=== PATIENT | female | born 1965 | race Caucasian/White ===

== ENCOUNTER → 2018-07-14 | Outpatient (CLI) | payer BC ==
[~2018-07-14] MED LIST: ACET325T14 PO; IBUP200T64 PO
== END | disposition home or self-care (01) ==
LOC: MERGE 08:30 → STAR 08:34
PROVIDERS: ATTEND Orthopaedic Surgery
DX: Z02.9 Encounter for administrative examinations, unspecified (principal)

== ENCOUNTER 2018-07-20 05:16 | Day surgery (SDC) | payer BC ==
[~2018-07-20] VITALS: Ht 165.1 cm; Wt 78.9 kg
[2018-07-20] MEDS ORDERED: LACTATED RINGERS 1,000 ML IV SCH (05:45)
[2018-07-20 06:11] VITALS: BP 158/97
[2018-07-20] MEDS ORDERED: ROPIvacaine/PF 0.5%, 30 ML ONE (06:23)
[2018-07-20] MEDS ORDERED: LIDOCAINE 1%-EPI 1:100K, 30ML ONE (06:23)
[2018-07-20] MEDS ORDERED: FENTANYL PF 100 MCG/2ML ONE ×3 (06:53→07:40)
[2018-07-20] MEDS ORDERED: MIDAZOLAM 1 MG/ML, 2ML ONE (06:53)
[2018-07-20] MEDS ORDERED: DEXAMETHASONE 4 MG/ML, 1ML ONE (07:02)
[2018-07-20] MEDS ORDERED: ONDANSETRON 2MG/ML, 2ML ONE (07:02)
[2018-07-20] MEDS ORDERED: PROPOFOL 50 ML ONE (07:08)
[2018-07-20] MEDS ORDERED: ACETAMINOPHEN 650 MG/20.3 ML UDC ONE (07:40)
[2018-07-20] MEDS ORDERED: OXYcodone 5 MG/5 ML ORAL.SOL UDC ONE (07:40)
[2018-07-20] MEDS: FENTANYL PF 100 MCG/2ML IV PRN ×2 (07:51→07:56)
[2018-07-20] MEDS ORDERED: LABETALOL 20 MG/4 ML ONE (07:53)
[2018-07-20] MEDS: LABETALOL 5MG/ML, 20ML IV PRN ×2 (07:55→08:08)
[2018-07-20] MEDS ORDERED: MORPHINE SULFATE 4 MG/ML, 1ML IVPush PRN (08:00)
[2018-07-20] MEDS ORDERED: ONDANSETRON 2MG/ML, 2ML IV PRN (08:00)
[2018-07-20] MEDS ORDERED: EPHEDRINE 50 MG/ML, 1ML IM PRN (08:00)
[2018-07-20] MEDS ORDERED: PROMETHAZINE 12.5 MG SUPP PR PRN (08:00)
[2018-07-20] MEDS ORDERED: ACETAMINOPHEN 325 MG TABLET PO PRN (08:00)
[2018-07-20] MEDS ORDERED: OXYcodone 5 MG/5 ML ORAL.SOL UDC PO PRN (08:00)
[2018-07-20] MEDS ORDERED: MEPERIDINE/PF 25MG/0.5ML IVPush PRN (08:00)
[2018-07-20] MEDS ORDERED: DIPHENHYDRAMINE 50 MG/ML, 1ML IVPush PRN (08:00)
[2018-07-20] MEDS ORDERED: PROMETHAZINE 25 MG/ML, 1ML IV PRN (08:00)
[2018-07-20] MEDS ORDERED: EPHEDRINE 50 MG/ML, 1ML IVPush PRN (08:00)
[2018-07-20] MEDS ORDERED: PROMETHAZINE 25 MG SUPP PR PRN (08:00)
[2018-07-20] MEDS ORDERED: ONDANSETRON ODT 8 MG PO PRN (08:00)
[2018-07-20] MEDS ORDERED: MIDAZOLAM 1 MG/ML, 2ML IV PRN (08:00)
[2018-07-20] MEDS ORDERED: MORPHINE SULFATE 4 MG/ML, 1ML ONE (08:04)
== END 2018-07-20 09:20 | disposition home or self-care (01) ==
LOC: OUT 05:16 → MERGE 07:00 → OUT 09:20
PROVIDERS: ATTEND Orthopaedic Surgery
DX: S83.281A Other tear of lateral meniscus, current injury, right knee, initial encounter (principal); M94.261 Chondromalacia, right knee; X58.XXXA Exposure to other specified factors, initial encounter; Y93.89 Activity, other specified; Y92.89 Other specified places as the place of occurrence of the external cause; Y99.8 Other external cause status; Z88.8 Allergy status to other drugs, medicaments and biological substances; Z72.89 Other problems related to lifestyle
CPT/HCPCS: 29881; J1100; J2250; J2405; J2704; J2795; J3010; J3490; J7120

== ENCOUNTER → 2020-09-17 | Outpatient (CLI) | payer BC | END | disposition home or self-care (01) | LOC: CFH 08:08 | PROVIDERS: ATTEND Internal Medicine Cardiovascular Disease | DX: Z01.810 Encounter for preprocedural cardiovascular examination (principal); I10 Essential (primary) hypertension; I25.89 Other forms of chronic ischemic heart disease | CPT/HCPCS: 78452; 93017; A9502 ==

== ENCOUNTER 2020-10-03 11:41 | Day surgery (SDC) | payer BC ==
[~2020-10-03] VITALS: Ht 165.1 cm; Wt 75.9 kg
[2020-10-03 12:43] VITALS: BP 160/101
[2020-10-03] MEDS ORDERED: LISI-170 PO (12:55)
[2020-10-03] MEDS ORDERED: FAMO-79 PO (12:55)
[2020-10-03 13:12] LABS: BASOPHILS % (AUTO) 1 % (0-1); EOSINOPHILS % (AUTO) 1 % (1-7); LYMPHOCYTES % (AUTO) 31 % (22-44); MEAN CORPUSCULAR HEMOGLOBIN 30.6 pg (27.0-34.8); MEAN PLATELET VOLUME 8.6 fL (7.4-10.4); MONOCYTES % (AUTO) 5 % (2-9); NEUTROPHILS % (AUTO) 63 % (42-75); PLATELET COUNT 279 x10^3/uL (130-400); RED BLOOD COUNT 5.06 x10^6/uL (3.82-5.3); RED CELL DISTRIBUTION WIDTH 13.5 % (9.6-15.2)
[2020-10-03 13:15] LABS: MD NO
[2020-10-03 13:16] LABS: ANION GAP 5 mmol/L (5-15); CHLORIDE 109 mmol/L (98-107); CREATININE 0.85 mg/dL (0.55-1.02)
[2020-10-03] MEDS ORDERED: MIDAZOLAM 1 MG/ML, 2ML ONE (14:57)
[2020-10-03] MEDS ORDERED: FENTANYL PF 100 MCG/2ML ONE (14:57)
[2020-10-03] MEDS ORDERED: LIDOCAINE-MPF 1%, 5ML ONE (14:58)
[2020-10-03] MEDS ORDERED: VERAPAMIL 2.5 MG/ML, 2ML ONE (14:58)
[2020-10-03] MEDS ORDERED: HEPARIN 1,000 UNITS/ML, 10ML ONE (14:58)
[2020-10-03] MEDS ORDERED: ACETAMINOPHEN 325 MG TABLET ONE (15:51)
[2020-10-03] MEDS ORDERED: ACETAMINOPHEN 325 MG TABLET PO ONE (16:00)
== END 2020-10-03 17:00 | disposition home or self-care (01) ==
LOC: CACL 11:41
PROVIDERS: ATTEND Internal Medicine Cardiovascular Disease
DX: R93.1 Abnormal findings on diagnostic imaging of heart and coronary circulation (principal); I10 Essential (primary) hypertension; I49.40 Unspecified premature depolarization; Z88.2 Allergy status to sulfonamides; Z79.899 Other long term (current) drug therapy; Z98.890 Other specified postprocedural states; Z72.89 Other problems related to lifestyle; Z82.49 Family history of ischemic heart disease and other diseases of the circulatory system
CPT/HCPCS: 36415; 80048; 85025; 93458; 99156; C1769; C1894; J1644; J2250; J3010; Q9967